=== PATIENT | male | born 1985 | race African-American/Black ===

== ENCOUNTER 2017-09-08 17:22 | Emergency (ER) | payer SELFPAY ==
[2017-09-08] MEDS ORDERED: Ibuprofen 200 MG TAB ONE (17:49)
== END 2017-09-08 18:46 | disposition home or self-care (01) ==
LOC: ERS 17:22
DX: J11.1 Influenza due to unidentified influenza virus with other respiratory manifestations (principal); F17.210 Nicotine dependence, cigarettes, uncomplicated
CPT/HCPCS: 99406

== ENCOUNTER 2018-05-20 02:31 | Emergency (ER) | payer SELFPAY | END 2018-05-20 03:25 | disposition home or self-care (01) | LOC: ERS 02:31 | DX: T16.2XXA Foreign body in left ear, initial encounter (principal); F17.210 Nicotine dependence, cigarettes, uncomplicated | CPT/HCPCS: 69200 ==

== ENCOUNTER 2018-05-25 15:25 | Emergency (ER) | payer SELFPAY | END 2018-05-25 16:41 | disposition home or self-care (01) | LOC: ERS 15:25 | DX: H10.9 Unspecified conjunctivitis (principal); F17.210 Nicotine dependence, cigarettes, uncomplicated | CPT/HCPCS: 99283 ==

== ENCOUNTER 2019-01-22 10:38 | Emergency (ER) | payer SELFPAY ==
[2019-01-22] MEDS ORDERED: Ketorolac Tromethamine 30 MG/ML VIAL ONE (12:50)
[2019-01-22 13:02] LABS: #Basophils 0.1 thou/uL (0.0-0.2); #Eosinphils 0.1 thou/uL (0.0-0.7); #Lymphocytes 2.6 thou/uL (1.20-3.40); #Monocytes 0.6 thou/uL (0.11-0.59); #Neutrophils 3.6 thou/uL (1.40-6.50); %Basophils 1.2 % (0.0-1.0); %Eosinophils 1.4 % (0.0-10.0); %Lymphocytes 37.9 % (21.0-51.0); %Monocytes 7.9 % (0.0-10.0); %Neutrophils 51.6 % (42.0-75.0); Hemoglobin 13.5 g/dL (14.0-18.0); Mean Corpuscular Hemoglobin 29.9 pg (27.0-31.0); Mean Corpuscular Volume 90.5 fL (78.0-98.0); Mean Platelet Volume 8.5 fL (7.4-10.4); Platelet Count 201 thou/uL (130-400); RBC Distribution Width 12.3 % (11.5-14.5); Red Blood Cell (RBC) Count 4.52 mill/uL (4.70-6.10); White Blood Cell (WBC) Count 6.9 thou/uL (4.8-10.8)
--- NOTE | 2019-01-22 13:26 | RAD ---
TWO VIEW CHEST: HISTORY: Chest pain. FINDINGS: Lungs are clear. Heart and mediastinum appear normal. Osseous structures unremarkable. IMPRESSION: Negative chest. POS: [facility]
[2019-01-22 13:39] LABS: ALT (SGPT) 15 U/L (8-55); AST (SGOT) 24 U/L (5-34); Albumin 4.1 g/dL (3.5-5.0); Alkaline Phosphatase 67 U/L (40-150); Anion Gap 10 mmol/L (10-20); BUN (Urea Nitrogen) 12 mg/dL (8.9-20.6); Bilirubin, Total 0.5 mg/dL (0.2-1.2); Calc. Creatinine Clearance 0 mL/min (70-130); Calcium 9.4 mg/dL (7.8-10.44); Carbon Dioxide 29 mmol/L (22-29); Chloride 106 mmol/L (98-107); Estimated GFR-MDRD Greater than 90; Globulin 2.8 g/dL (2.4-3.5); Glucose 85 mg/dL (70-105); Potassium 4.2 mmol/L (3.5-5.1); Protein, Total 6.9 g/dL (6.0-8.3); Sodium 141 mmol/L (136-145)
== END 2019-01-22 14:10 | disposition home or self-care (01) ==
LOC: ERS 10:38
DX: R07.9 Chest pain, unspecified (principal); F17.210 Nicotine dependence, cigarettes, uncomplicated
CPT/HCPCS: 36415; 71046; 80053; 84484; 85025; 93005; 94760; 96374; J1885

== ENCOUNTER 2020-02-22 11:09 | Emergency (ER) | payer SELFPAY ==
--- NOTE | 2020-02-22 12:10 | RAD ---
LEFT ANKLE 3 VIEWS: Date: 02/22/2020 HISTORY: Injury, left ankle pain and swelling. FINDINGS/IMPRESSION: Soft tissue swelling is present. The ankle mortise is maintained. No acute fracture or dislocation is identified. POS: [facility]
== END 2020-02-22 11:56 | disposition home or self-care (01) ==
LOC: ERS 11:09
DX: S93.402A Sprain of unspecified ligament of left ankle, initial encounter (principal); F17.210 Nicotine dependence, cigarettes, uncomplicated; X50.1XXA Overexertion from prolonged static or awkward postures, initial encounter; Y93.67 Activity, basketball